=== PATIENT | male | born 1950 | race Caucasian/White ===

== ENCOUNTER 2017-01-27 03:15 | Emergency (ER) | payer MEDICARE, OTHER ==
[2017-01-27] MEDS ORDERED: IPRATROPIUM/ALBUTEROL 0.5/3 MG 3 ML AMPUL.NEB INHALATION ONE (03:55)
--- NOTE | 2017-01-27 04:01 | RADIOLOGY REPORT ---
HISTORY: Difficulty breathing COMPARISON: None. FINDINGS: 1 view of the chest obtained. There is no consolidation. There is no pleural effusion. There is no pneumothorax. The cardiomediastinal silhouette is normal. There is no abnormality of the pulmonary vessels. There is no focal lung parenchymal nodule. There is no bone lesion. IMPRESSION: Normal chest x-ray. Final Electronic Signature: This report was electronically signed by Darshan De La Rosa MD on 01/27/2017 3 :58 AM. [email or web address] /
--- NOTE | 2017-01-27 04:18 | ER PHYSICIAN DOCUMENTATION ---
Physician Documentation [facility] Name:Ross Olivo Age:66 yrs Sex:Male :1950 Arrival Date:01/27/2017 Time:03:15 Bed4 Private MD: Barry Fountain Disposition: 01/27 04:00 Chart complete. cd 04:07 Critical Care: not applicable. cd Disposition: 01/27/17 04:08 Discharged to Home/Self Care. Impression: Dyspnea - : Due to High Altitude Effect. - Condition is Good. - Discharge Instructions: DYSPNEA. - Medical Reconciliation form form. - Follow up: Private Physician; When: 7 - 10 days; Reason: Recheck today's complaints, Continuance of care. - Problem is new. - Symptoms are resolved. - Notes: Avoid alcohol, exercise or higher elevation if possible. Drink 3 quarts of water every day. Tylenol for headache. Any problems with chest pain, shortness of breath, etc, return to the ED. HPI: 03:40 This 66 yrs old Male presents to ER via Walk In with complaints of Breathing cd Difficulty. 03:40 The patient has shortness of breath at rest, that woke him/her from sleep, that cd occurred at home. Onset: The symptom(s)/episode began/occurred last night. Duration: The symptoms are continuous, but are steadily getting better. Associated signs and symptoms: Pertinent negatives: chest pain, productive cough, diaphoresis, fever, hemoptysis, nausea, vomiting. Severity of symptoms: At their worst the symptoms were mild in the emergency department the symptoms are unchanged. Risk Factors Risk factors for coronary artery disease include: A history of hypertension. The risk factors for pulmonary embolism include: This patient has been traveling recently. Historical: - Allergies: No known drug Allergies; - Home Meds: 1. lisinopril 5 mg oral tab 1 tab once daily 2. alprazolam 0.25 mg oral TbDL for Anxiety 3. hydrochlorothiazide 12.5 mg oral tab - PMHx: Hypertension; ANXIETY; - PSHx: None; - Tetanus: < 10 years. - Ebola Screening: : Patient negative for fever greater than or equal to 101.5 degrees Fahrenheit, and additional compatible Ebola Virus Disease symptoms. Patient denies exposure to infectious person. Patient denies travel to an Ebola-affected area in the 21 days before illness onset. . - Immunization history: no. Flu Vaccine None Flu Vaccine None. - Social history: Smoking status: Patient states former smoker of tobacco. Patient uses alcohol occasionally. Patient/guardian denies using street drugs. ROS: 03:30 ENT: Negative for injury, pain, epistaxis and discharge. cd Neck: Negative for injury, pain, stiffness and swelling. Abdomen/GI: Negative for abdominal pain, nausea, vomiting, diarrhea, constipation, distension, melena, hematochezia and hematemesis. Back: Negative for injury, pain or muscle spasms. MS/Extremity: Negative for injury, deformity, edema, calf tenderness, pain or coldness. Skin: Negative for injury, rash, itching and discoloration. 03:30 Neuro: Negative for headache, weakness, numbness, tingling, and seizure. cd 03:30 Constitutional: Positive for poor PO intake, Negative for chills, fever. 03:30 Cardiovascular: Negative for chest pain, orthopnea, palpitations. 03:30 Respiratory: Positive for shortness of breath, Negative for cough, hemoptysis, orthopnea, pleurisy, sputum production, wheezing. 03:30 All other systems are negative. Exam: ENT: Nares patent. No nasal discharge, no septal abnormalities noted. Tympanic membranes are normal and external auditory canals are clear. Oropharynx with no redness, swelling, or masses, exudates, or evidence of obstruction, uvula midline. Mucous membranes moist. Neck: Trachea midline, no thyromegaly or masses palpated, and no cervical lymphadenopathy. Supple, full range of motion without nuchal rigidity, or vertebral point tenderness. No Meningismus. Abdomen/GI: Soft, non-tender, with normal bowel sounds. No distension or tympany. No guarding or rebound. No evidence of tenderness throughout. Back: No spinal tenderness. No costovertebral tenderness. Full range of motion. Skin: Warm, dry with normal turgor. Normal color with no rashes, no lesions, and no evidence of cellulitis. MS/ Extremity: Pulses equal, no cyanosis. Neurovascular intact. Full, normal range of motion. 03:30 Neuro: Awake and alert, GCS 15, oriented to person, place, time, and situation. cd Cranial nerves II-XII grossly intact. Motor strength 5/5 in all extremities. Sensory grossly intact. Cerebellar exam normal. Normal gait. 03:30 Constitutional: The patient appears alert, awake, non-diaphoretic, non-toxic, well developed, well nourished, anxious. 03:30 Cardiovascular: Rate: normal, Rhythm: regular, Pulses: no pulse deficits are appreciated, Heart sounds: normal. 03:30 Respiratory: the patient does not display signs of respiratory distress, Respirations: normal, no acute changes, Breath sounds: are normal, clear throughout. Vital Signs: 03:30 BP 155 / 88; Pulse 63; Resp 15; Temp 98.0; Pulse Ox 97% on R/A; Weight 77.11 kg; Height mk2 5 ft. 8 in. (172.72 cm); Pain 0/10; 04:15 BP 140 / 67; Pulse 63; Resp 15; Pulse Ox 96% on R/A; Pain 0/10; mk2 03:30 Body Mass Index 25.85 (77.11 kg, 172.72 cm) mk2 MDM: 03:34 EKG attached mk2 03:45 Antibiotic administration: Not indicated. Data reviewed: vital signs, nurses notes, old cd medical records, and as a result, I will discharge patient. Data interpreted: Pulse oximetry: on room air is 96 %. Interpretation: normal. 04:00 Counseling: I had a detailed discussion with the patient and/or guardian regarding: the cd historical points, exam findings, and any diagnostic results supporting the discharge/admit diagnosis, radiology results, the need for outpatient follow up, for a recheck, with the patient's primary care provider, to return to the emergency department if symptoms worsen or persist or if there are any questions or concerns that arise at home. ECG:. 04:06 Patient medically screened. cd 01/27 04:02 Order name: CHEST; SINGLE [place]IEW [id number] EDMS 01/27 03:31 Order name: EKG - 12 Lead; Complete Time: 03:31 mk2 EC:20 Rate is 56 beats/min. Rhythm is regular. QRS [place] is Normal. UT interval is normal. QRS cd interval is prolonged. QT interval is normal. No Q waves. T waves are Normal. No ST changes noted. Clinical impression: Normal ECG and No evidence of ischemia. Interpreted by me. Dispensed Medications: 03:56 Drug: DuoNeb (Albuterol 2.5 mg, Atrovent 0.5 mg); 3 ml; Route: Nebulizer; mk2 04:04 Follow up: Response: No adverse reaction mk2 Signatures: Barry Roca MD MD cd Kruger, Meg, RN RN mk2
--- NOTE | 2017-01-27 04:18 | ER NURSING DOCUMENTATION ---
Nurse's Notes [facility] Name:Ross Olivo Age:66 yrs Sex:Male :1950 Arrival Date:01/27/2017 Time:03:15 Bed4 Private MD: Diagnosis:Dyspnea-: Due to High Altitude Effect Presentation: 01/27 03:18 Acuity: RAQUEL 3 mk2 03:24 Presenting complaint: Patient states: I drove in today from [place] today and I mk2 was feeling short of breath when I was trying to sleep. I would fall asleep then wake up. Pt denies cp, diaphoresis or discomfort otherwise. Transition of care: Home. Notified ED Physician of Dr. Roca notified. 03:24 Method Of Arrival: Walk In [facility] Triage Assessment: 03:30 General: Appears in no apparent distress, Behavior is cooperative, pleasant. Pain: mk2 Denies pain. Neuro: No deficits noted. Cardiovascular: Heart tones S1 S2 Pulses strong and regular. Respiratory: Breath sounds are clear bilaterally. Reports shortness of breath Onset: The symptoms/episode began/occurred today, the patient has mild shortness of breath. Derm: No deficits noted. Historical: - Allergies: No known drug Allergies; - Home Meds: 1. lisinopril 5 mg oral tab 1 tab once daily 2. alprazolam 0.25 mg oral TbDL for Anxiety 3. hydrochlorothiazide 12.5 mg oral tab - PMHx: Hypertension; ANXIETY; - PSHx: None; - Tetanus: < 10 years. - Ebola Screening: : Patient negative for fever greater than or equal to 101.5 degrees Fahrenheit, and additional compatible Ebola Virus Disease symptoms. Patient denies exposure to infectious person. Patient denies travel to an Ebola-affected area in the 21 days before illness onset. . - Immunization history: no. Flu Vaccine None Flu Vaccine None. - Social history: Smoking status: Patient states former smoker of tobacco. Patient uses alcohol occasionally. Patient/guardian denies using street drugs. Screenin:32 Infectious Disease Risk None. Abuse screen: Denies threats or abuse. Nutritional mk2 screening: No deficits noted. Assessment: 03:32 See Triage Assessment done by same RN. mk2 04:17 Cardiovascular: Rhythm is regular. mk2 04:17 Respiratory: Respiratory effort is unlabored. mk2 Vital Signs: 03:30 BP 155 / 88; Pulse 63; Resp 15; Temp 98.0; Pulse Ox 97% on R/A; Weight 77.11 kg; Height mk2 5 ft. 8 in. (172.72 cm); Pain 0/10; 04:15 BP 140 / 67; Pulse 63; Resp 15; Pulse Ox 96% on R/A; Pain 0/10; mk2 03:30 Body Mass Index 25.85 (77.11 kg, 172.72 cm) 2 ED Course: 03:17 Patient arrived in ED. ma1 03:17 Laura Brantley, RN is Primary Nurse. mk2 03:18 Triage completed. mk2 03:19 EKG done. (by ED staff). mk2 03:31 Arm band placed on Bed in low position Call Light in Reach Gowned HOB Elevated Side mk2 rails up x1. 03:32 Valuables Remains with patient. shelter monitor on. Pulse ox on. NIBP on. Verbal 2 reassurance given. 03:34 EKG attached 2 03:50 Port Xray Completed. mr 04:06 Barry Roca MD is Attending Physician. cd Administered Medications: 03:56 Drug: DuoNeb (Albuterol 2.5 mg, Atrovent 0.5 mg); 3 ml; Route: Nebulizer; 2 04:04 Follow up: Response: No adverse reaction 2 Outcome: 04:08 Discharge ordered by . cd 04:15 Discharged to home ambulatory. mk2 04:15 Condition: good 04:15 Discharge Assessment: Patient awake, alert and oriented x 3. No cognitive and/or functional deficits noted. Patient verbalized understanding of disposition instructions. 04:15 Discharge instructions given to patient, Instructed on discharge instructions, follow up and referral plans. medication usage. 04:17 Patient left the ED. mk2 01/28 19:07 Discharge F/U Call: Spoke with: patient. Are you having any pain? no. Overall Care on nf a scale of 1-10 with 10 being the best care, you rate our care as: the rating of 10. Further F/U necessary? None needed Signatures: Gaby Cardoza RN RN nf Daley, Chris, MD MD cd Kruger, Meg RN RN 2 Yesy Marti flAndrea Watson mr
== END 2017-01-27 04:17 | disposition home or self-care (01) ==
LOC: ER 03:15
DX: R06.00 Dyspnea, unspecified (principal); T70.29XA Other effects of high altitude, initial encounter; I10 Essential (primary) hypertension; Z79.899 Other long term (current) drug therapy
CPT/HCPCS: 71010; 93005; 94640; 99283; 99284; J7620